=== PATIENT | male | born 1945 | race Caucasian/White ===

== ENCOUNTER 2021-04-09 18:03 | Emergency (ER) | payer MEDICARE, OTHER ==
[2021-04-09 19:11] LABS: BASOPHIL 0.3 % (0-2); EOSINOPHIL 2.4 % (0-7); HCT 42.2 % (42.0-52.0); HGB 13.9 g/dl (13.2-18.0); LYMPHOCYTE 19.4 % (15-48); MCH 30.5 pg (25.0-31.0); MCHC 32.9 g/dL (32.0-36.0); MCV 92.7 fL (78.0-100.0); MPV 9.5 fL (6.0-9.5); NEUTROPHIL 67.6 % (41-80); NRBC 0; PLT 202 K/uL (150-400); RBC 4.55 M/uL (4.70-6.00); RDW 13.2 % (11.5-14.0); WBC 10.8 K/uL (4.0-10.5)
[2021-04-09 19:40] LABS: ALBUMIN 3.6 g/dL (3.4-5.0); BILIRUBIN - TOTAL 0.6 mg/dL (0.2-1.0); BUN/CREAT RATIO (CALC) 10.4 RATIO; CREATININE 1.06 mg/dL (0.67-1.17); GLOBULIN (CALCULATION) 3.8 g/dL; POTASSIUM 4.2 mmol/L (3.5-5.1); TOTAL PROTEIN 7.4 g/dL (6.4-8.2)
== END 2021-04-09 20:20 | disposition left against medical advice (07) ==
LOC: FER 18:03
PROVIDERS: Internal Medicine
DX: R10.32 Left lower quadrant pain (principal); Z53.8 Procedure and treatment not carried out for other reasons
CPT/HCPCS: 36415; 80053; 82150; 83690; 85025; 99281

== ENCOUNTER → 2021-05-18 | Day surgery (SDC) | payer MEDICARE, OTHER ==
[~2021-05-18] VITALS: Ht 177.8 cm; Wt 77.6 kg
[~2021-05-18] MED LIST: ALPHAGAN 020 DROPS/M OD; BETIMOL5 ML EYEBOTH; CETIRIZINE HCL5 MG PO; DESONIDE15 GM TOP; LIPITOR40 MG PO; NORVASC5 MG PO; OMEPRAZOLE10 MG PO
== END | disposition home or self-care (01) ==
LOC: FAS 12:31
DX: Z12.11 Encounter for screening for malignant neoplasm of colon (principal); K57.30 Diverticulosis of large intestine without perforation or abscess without bleeding; I10 Essential (primary) hypertension; E78.00 Pure hypercholesterolemia, unspecified; Z86.010 Personal history of colon polyps; Z95.2 Presence of prosthetic heart valve; Z95.1 Presence of aortocoronary bypass graft; Z72.89 Other problems related to lifestyle; Z87.891 Personal history of nicotine dependence; Z20.822 Contact with and (suspected) exposure to COVID-19
CPT/HCPCS: J2704; J7120